=== PATIENT | female | born 1960 | race Caucasian/White ===

== ENCOUNTER 2018-07-13 01:15 | Emergency (ER) | payer BC ==
[2018-07-13 01:32] VITALS: TEMP 97.7
[2018-07-13] MEDS ORDERED: ALUM & MAG HYDROX-SIMETHICONE 30 ML, LIDOCAINE VISCOUS 2% 15 ML PO ONE ×2 (02:00)
[2018-07-13] MEDS ORDERED: LIDOCAINE HCL 2% (MOUTH-THROAT) 15 ML UD ONE (02:01)
[2018-07-13] MEDS ORDERED: PANTOPRAZOLE SOD SUSP 40 MG PCKT PO ONE (02:01)
[2018-07-13] MEDS ORDERED: ALUM & MAG HYDROX-SIMETHICONE 30 ML UD ONE (02:02)
--- NOTE | 2018-07-13 02:06 | ED.PDOC ---
History of Present Illness - General Chief Complaint: Abdominal Pain Stated Complaint: abdomen burning/pain going into chest Time Seen by Provider: 07/13/18 02:00 Information Source: patient Exam Limitations: no limitations - History of Present Illness Initial Comments: PT PRESENTS TO THE ED WITH COMPLAINT OF BURNING EPIGASTRIC ABDOMINAL PAIN RADIATING TO THE CHEST AND THROAT. PT STATES THAT SHE HAS BEEN HAVING SIMILAR INTERMITTENT SYMPTOMS. PT REPORTS TAKING MYLANTA AND TUMS AT HOME WITHOUT RELIEF INITIALLY BUT NOW STATES THAT SYMPTOMS HAVE IMPROVED SIGNIFICANTLY SINCE SHE ARRIVED TO THE ED. PT WAS SEEN IN [place] A FEW WEEKS PRIOR AND WAS TOLD SHE NEEDED TO SEE A GI SPECIALIST AND HAVE AN ENDOSCOPY. PT HAD A NEGATIVE CARDIAC EVAL AND NEGATIVE CHEST CT AT THAT TIME. PT REPORTS SIMILAR SYMPTOMS 5 YEARS AGO AT WHICH TIME SHE WAS SEEN BY GI AND CARDIOLOGY AND HAD NEGATIVE WORKUPS. Abdominal Pain Onset Location: epigastric Pain Radiation: chest Quality: moderate, burning Timing/Duration: intermittent, gone now Improving Factors: medication Worsening Factors: eating Associated Symptoms: back pain, chest pain, heartburn Review of Systems - Review of Systems Constitutional: Denies: chills, fever EENTM: Denies: nose congestion, throat pain Respiratory: States: cough. Denies: short of breath Cardiology: States: chest pain. Denies: palpitations, syncope Gastrointestinal/Abdominal: States: see HPI, abdominal pain. Denies: nausea, vomiting Genitourinary: Denies: dysuria, frequency Musculoskeletal: Denies: joint pain, joint swelling Skin: Denies: dryness, lesions Neurological: Denies: headache, numbness Endocrine: States: no symptoms reported Hematologic/Lymphatic: States: no symptoms reported Past Medical History (General) - Patient Medical History Hx Seizures: No Hx Stroke: No Hx Dementia: No Hx Asthma: No Hx of COPD: No Hx Cardiac Disorders: No Hx Congestive Heart Failure: No Hx Pacemaker: No Hx Hypertension: No Hx Thyroid Disease: No Hx Diabetes: No Hx Gastroesophageal Reflux: Yes Hx Renal Disease: No Hx Cancer: No Hx of HIV: No Hx Hepatitis C: No Hx MRSA: No Surgical History: Hysterectomy - Vaccination History Hx Tetanus, Diphtheria Vaccination: No Hx Influenza Vaccination: No Hx Pneumococcal Vaccination: No - Social History Hx Tobacco Use: Yes Cigarettes Packs Per Day: 1 Hx Alcohol Use: No Hx Substance Use: No Hx Substance Use Treatment: No Hx Depression: No - Female History Patient : No Family Medical History - Family History Mother Living Status: Age at (years of age): 70 Hx Cardiac Disease: Yes Hx Family Cancer: Yes Hx Family;Other: AAA Physical Exam - Physical Exam General Appearance: Alert, No apparent distress, Well Developed, Well Groomed, Well Hydrated, Well Nourished Eyes, Ears, Nose, Throat Exam: normal ENT inspection Neck: supple, normal inspection Respiratory: lungs clear, normal breath sounds, no respiratory distress Cardiovascular/Chest: regular rate, rhythm, no murmur Gastrointestinal/Abdominal: non tender, soft Neurologic: alert, normal mood/affect, oriented x 3 Skin Exam: normal color, warm/dry Progress - Progress Progress: 07/13/18 03:01 PT REPORTS CONTINUED IMPROVEMENT AFTER PROTONIX AND GI SLIDER GIVEN IN THE ED. LABS AND DIAGNOSTIC STUDIES DISCUSSED WITH PATIENT. - Results/Orders Results/Orders: Laboratory Tests 07/13/18 07/13/18 07/13/18 01:35 01:35 01:35 WBC 7.5 RBC 5.00 Hgb 14.5 Hct 43.3 MCV 86.6 MCH 29.1 MCHC 33.5 RDW 14.2 Plt Count 204 MPV 8.2 Absolute Neuts (auto) 4.00 Absolute Lymphs (auto) 2.80 Absolute Monos (auto) 0.60 Absolute Eos (auto) 0.10 Absolute Basos (auto) 0.10 Neutrophils % 52.9 Lymphocytes % 37.2 Monocytes % 7.5 Eosinophils % 1.6 Basophils % 0.8 PT 9.9 INR 0.99 PTT (SP) 25.2 D-Dimer, Quantitative 0.72 H* Sodium 140 Potassium 4.4 Chloride 105 Carbon Dioxide 26 Anion Gap 13.4 BUN 18 Creatinine 0.97 BUN/Creatinine Ratio 18.6 Random Glucose 108 H Serum Osmolality 281.8 Calcium 9.0 Magnesium 2.4 Total Bilirubin 0.5 Direct Bilirubin < 0.1 Indirect Bilirubin 0.4 AST 17 ALT 26 Alkaline Phosphatase 68 Creatine Kinase 75 B-Natriuretic Peptide 8.8 Serum Total Protein 7.5 Albumin 4.0 Amylase 52 Lipase 31 Urine Color Urine Appearance Urine pH Ur Specific [place] Urine Protein Urine Glucose (UA) Urine Ketones Urine Blood Urine Nitrite Urine Bilirubin Urine Urobilinogen Ur Leukocyte Esterase Urine RBC Urine WBC Ur Epithelial Cells Urine Bacteria 07/13/18 01:47 WBC RBC Hgb Hct MCV MCH MCHC RDW Plt Count MPV Absolute Neuts (auto) Absolute Lymphs (auto) Absolute Monos (auto) Absolute Eos (auto) Absolute Basos (auto) Neutrophils % Lymphocytes % Monocytes % Eosinophils % Basophils % PT INR PTT (SP) D-Dimer, Quantitative Sodium Potassium Chloride Carbon Dioxide Anion Gap BUN Creatinine BUN/Creatinine Ratio Random Glucose Serum Osmolality Calcium Magnesium Total Bilirubin Direct Bilirubin Indirect Bilirubin AST ALT Alkaline Phosphatase Creatine Kinase B-Natriuretic Peptide Serum Total Protein Albumin Amylase Lipase Urine Color Yellow Urine Appearance Clear Urine pH 7.0 Ur Specific Foster 1.015 Urine Protein Negative Urine Glucose (UA) Negative Urine Ketones Negative Urine Blood Trace-lysed H Urine Nitrite Negative Urine Bilirubin Negative Urine Urobilinogen 0.2 Ur Leukocyte Esterase Negative Urine RBC 0 Urine WBC 0 Ur Epithelial Cells 1-3 Urine Bacteria Rare - EKG/XRAY/CT EKG: Sinus - @65BPM, NL INTERVALS, NL AXIS, GOOD R WAVE PROGRESSION, no ST T wave changes, Unchanged from - 06/18/14 Departure - Departure Clinical Impression: Epigastric abdominal pain, Chest pain Time of Disposition: 03:03 Disposition: Discharge to Home or Self Care Condition: Good Departure Forms: ED Discharge - Pt. Copy, Patient Portal Self Enrollment Instructions: DI for Abdominal Pain-Adult Diet: bland diet Referrals: Chuck Armenta MD [Referring] - 1 Week SULY MERCEDES [Primary Care Provider] - 1-5 Days Prescriptions: Pantoprazole Tablet [Protonix] 40 mg PO ACBK 14 Days #14 tab Sucralfate Suspension [Carafate Suspension] 1 gm PO ACHS 14 Days #560 ml Home Medications: Ambulatory Orders Pantoprazole Tablet [Protonix] 40 mg PO ACBK 14 Days #14 tab 07/13/18 Sucralfate Suspension [Carafate Suspension] 1 gm PO ACHS 14 Days #560 ml 07/13/18
[2018-07-13 03:14] VITALS: BP 119/74; O2SAT 97
== END 2018-07-13 03:16 | disposition home or self-care (01) ==
LOC: ER 01:15
DX: R10.13 Epigastric pain (principal); R07.9 Chest pain, unspecified; K21.9 Gastro-esophageal reflux disease without esophagitis; Z87.891 Personal history of nicotine dependence

== ENCOUNTER 2018-07-31 14:45 | Emergency (ER) | payer BC ==
--- NOTE | 2018-07-31 15:09 | ED.PDOC ---
History of Present Illness - General Chief Complaint: GI Problem Stated Complaint: upper abd discomfort Time Seen by Provider: 07/31/18 15:09 Information Source: patient Exam Limitations: no limitations - History of Present Illness Initial Comments: Laurie Thacker 58 y/o female stated that she had on and off stabbing/burning epigastric pain for the last one month radiating to her chest and back of throat and mid back comes spontaneously and goes away by itself had Ct-scan abd. done in [place] in the past but no abnormalities were noted also had several ER visit for same problem.Stated no relationship to food intake,no N/V;Bm-ok;no dysuria no cough.Had egd/colonoscopy in past and also seen GI specialist also echo and stress test done in the past.Has pending appointment with GI specialist. Stated felt better at time of exam Abdominal Pain Onset Location: RUQ Pain Radiation: chest, back Quality: moderate, burning, stabbing Timing/Duration: other - 30 days Worsening Factors: nothing Associated Symptoms: denies symptoms Review of Systems - Review of Systems Constitutional: States: no symptoms reported EENTM: States: no symptoms reported Respiratory: States: no symptoms reported Cardiology: States: no symptoms reported Gastrointestinal/Abdominal: States: see HPI Genitourinary: States: no symptoms reported Musculoskeletal: States: no symptoms reported Skin: States: no symptoms reported Neurological: States: no symptoms reported Endocrine: States: no symptoms reported All other Systems: Reviewed and Negative, No Change from Baseline Past Medical History (General) - Patient Medical History Hx Seizures: No Hx Stroke: No Hx Dementia: No Hx Asthma: No Hx of COPD: No Hx Cardiac Disorders: No Hx Congestive Heart Failure: No Hx Pacemaker: No Hx Hypertension: No Hx Thyroid Disease: No Hx Diabetes: No Hx Gastroesophageal Reflux: Yes Hx Renal Disease: No Hx Cancer: Yes - cervical Hx of HIV: No Hx Hepatitis C: No Hx MRSA: No Surgical History: other - hysterectomy - Vaccination History Hx Tetanus, Diphtheria Vaccination: No Hx Influenza Vaccination: No Hx Pneumococcal Vaccination: No Immunizations Up to Date: Yes - Social History Hx Tobacco Use: Yes Cigarettes Packs Per Day: 1 Hx Alcohol Use: No Hx Substance Use: No Hx Substance Use Treatment: No Hx Depression: No - Female History Patient is a Female of Child Bearing Age (10 -59 yrs old): Yes - hysterectomy Patient : No Family Medical History - Family History Mother Living Status: Age at (years of age): 70 Hx Family Stroke: Yes - mom Hx Cardiac Disease: Yes Hx Family Cancer: Yes - lungs-mom Hx Family;Other: AAA;[place]-sister mom Physical Exam - Physical Exam General Appearance: Alert, Comfortable, No apparent distress Eyes, Ears, Nose, Throat Exam: PERRL/EOMI, normal ENT inspection, pharynx normal Neck: non-tender, full range of motion, supple, normal inspection Respiratory: chest non-tender, lungs clear, normal breath sounds, no respiratory distress Cardiovascular/Chest: normal peripheral pulses, regular rate, rhythm, no murmur Peripheral Pulses: No deficit Gastrointestinal/Abdominal: normal bowel sounds, soft, tenderness - RUQ negative gomez's sign Back Exam: no CVA tenderness, no vertebral tenderness Extremity: no pedal edema, no calf tenderness Neurologic: alert, oriented x 3 Skin Exam: normal color, warm/dry Progress - Progress Progress: 07/31/18 16:13 Vital Signs - 8 hr 07/31/18 07/31/18 15:00 16:00 Temperature 98.0 F 97.3 F L Pulse Rate [ 70 69 Left] Respiratory 20 18 Rate Blood Pressure 124/67 132/68 [Left Arm] O2 Sat by Pulse 96 96 Oximetry - Results/Orders Results/Orders: 07/31/18 15:59 EKG Assessment ONCE 07/31/18 16:00 EKG STAT Laboratory Results - last 24 hr 07/31/18 07/31/18 11:11 15:26 WBC 6.8 RBC 5.16 Hgb 14.9 Hct 44.0 MCV 85.3 MCH 28.8 MCHC 33.8 RDW 14.0 Plt Count 217 MPV 8.2 Absolute Neuts (auto) 3.40 Absolute Lymphs (auto) 2.70 Absolute Monos (auto) 0.50 Absolute Eos (auto) 0.10 Absolute Basos (auto) 0.10 Neutrophils % 49.9 Lymphocytes % 39.9 Monocytes % 7.8 Eosinophils % 1.6 Basophils % 0.8 PT 10.0 INR 1.00 PTT (SP) 25.5 Sodium 136 Potassium 4.0 Chloride 100 L Carbon Dioxide 26 Anion Gap 14.0 BUN 13 Creatinine 1.03 BUN/Creatinine Ratio 12.6 Random Glucose 88 Serum Osmolality 271.5 L Calcium 8.9 Magnesium 2.2 Total Bilirubin 0.5 Direct Bilirubin < 0.1 Indirect Bilirubin 0.4 AST 22 ALT 33 Alkaline Phosphatase 71 Creatine Kinase 73 CK-MB (CK-2) 0.9 CK-MB (CK-2) % Not Reportable Troponin I < 0.02 Serum Total Protein 7.6 Albumin 4.0 Lipase 26 Urine Color Yellow Urine Appearance Clear Urine pH 5.5 Ur Specific [place] <= 1.005 Urine Protein Negative Urine Glucose (UA) Negative Urine Ketones Negative Urine Blood Negative Urine Nitrite Negative Urine Bilirubin Negative Urine Urobilinogen 0.2 Ur Leukocyte Esterase Negative Urine RBC 0 Urine WBC 0 Ur Epithelial Cells 5-10 Urine Bacteria 0 Discuss all test results with patient and advised to keep appointment with GI specialist as scheduled - EKG/XRAY/CT EKG: Sinus, nonspecific ST T wave Chg, Unchanged from - 13 july 2018;27 Apr 2014 Comments: HR-62 Departure - Departure Clinical Impression: Abdominal pain Qualifiers: Abdominal location: right upper quadrant Qualified Code(s): R10.11 - Right upper quadrant pain Time of Disposition: 16:58 Disposition: Discharge to Home or Self Care Condition: Good Departure Forms: ED Discharge - Pt. Copy, Patient Portal Self Enrollment Diet: other - AVOID GREASY SPICY FOODS Referrals: SULY MERCEDES [Primary Care Provider] - 1-2 Weeks Prescriptions: Chlordiazepoxide HCl-Clidinium [Librax] 1 ea PO BID #20 cap Home Medications: Ambulatory Orders Pantoprazole Tablet [Protonix] 40 mg PO ACBK 14 Days #14 tab 07/13/18 Sucralfate Suspension [Carafate Suspension] 1 gm PO ACHS 14 Days #560 ml Chlordiazepoxide HCl-Clidinium [Librax] 1 ea PO BID #20 cap 07/31/18 Additional Instructions: Return to ER as needed;Call primary 02 Aug 2018 for recheck;Continue with all home medications
[2018-07-31] MEDS ORDERED: MORPHINE SULFATE INJ 10 MG/ML VIAL IV ONE (15:10)
[2018-07-31] MEDS ORDERED: PROCHLORPERAZINE INJ 10 MG/2 ML VIAL IV ONE (15:10)
[2018-07-31] MEDS ORDERED: ONDANSETRON INJ 4 MG/2 ML VIAL ONE (15:26)
[2018-07-31] MEDS ORDERED: ONDANSETRON INJ 4 MG/2 ML VIAL IV ONE (15:27)
[2018-07-31 16:09] VITALS: TEMP 97.3
[2018-07-31 17:02] VITALS: BP 129/77; O2SAT 97
== END 2018-07-31 17:07 | disposition home or self-care (01) ==
LOC: ER 14:45
DX: R10.11 Right upper quadrant pain (principal); K21.9 Gastro-esophageal reflux disease without esophagitis; Z85.41 Personal history of malignant neoplasm of cervix uteri; Z87.891 Personal history of nicotine dependence
CPT/HCPCS: 36415; 80048; 80076; 81001; 82550; 82553; 83690; 84484; 85025; 85610; 85730; 93005; J2405

== ENCOUNTER 2019-07-21 07:15 | Day surgery (SDC) | payer BC ==
--- NOTE | 2019-07-19 11:02 | RAD ---
EXAM DESCRIPTION: Chest,2 Views CLINICAL HISTORY: 59 years Female, pre op COMPARISON: Radiographs the chest dated 06/18/2014. TECHNIQUE: PA and lateral radiographs of the chest were obtained. FINDINGS: Trachea is midline.The cardiomediastinal silhouette is normal in size. The pulmonary vasculature is within normal limits.The lungs are clear with no acute consolidation.No evidence of pleural effusions.No evidence of pneumothorax. IMPRESSION: No acute cardiopulmonary process. Electronically signed by: Emmy Vu MD 07/19/2019 11:00 AM CDT
[~2019-07-21 07:15] MED LIST: BUPIVACAINE 0.25% W/EPI 50 ML VIAL INJ ONE; DEXAMETHASONE INJ 10 MG/ML VIAL ONE; FAMOTIDINE 10 MG/ML ML IV ONE; LACTATED RINGERS 1,000 ML ONE; LIDOCAINE 1% 10 ML VIAL INJ ONE; MAGNESIUM SULFATE INJ 1 GM/2 ML VIAL ONE; PROPOFOL 200 MG/20 ML VIAL IV ONE; SODIUM CHL 0.9% 100ML MINI-BAG 100 ML IVPB ONE; SODIUM CHLORIDE 0.9% 50 ML VIAL ONE; ceFAZolin SODIUM 1 GM VIAL ONE; diphenhydrAMINE HCL 50 MG/ML VIAL ONE
[2019-07-21] MEDS ORDERED: ROCURONIUM BROMIDE 10 MG/ML VIAL ONE (07:48)
[2019-07-21] MEDS ORDERED: KETAMINE HCL 100 MG/ML VIAL ONE (07:48)
[2019-07-21] MEDS ORDERED: HYDROmorphone HCL INJ 2 MG/ML VIAL ONE ×2 (07:48→13:43)
[2019-07-21] MEDS ORDERED: MIDAZOLAM INJ 2 MG/2 ML VIAL ONE (07:48)
[2019-07-21] MEDS ORDERED: BUPIVACAINE 0.25% W/EPI 50 ML VIAL INJ ONE (08:16)
[2019-07-21] MEDS ORDERED: SUGAMMADEX SODIUM 200 MG/2 ML VIAL IV ONE (09:02)
[2019-07-21] MEDS ORDERED: LEVALBUTEROL NEBS 1.25 MG/3 ML VIAL NEB ONE (09:57)
[2019-07-21] MEDS: HYDROmorphone HCL INJ 2 MG/ML VIAL ONE ×3 (10:12→10:32)
--- NOTE | 2019-07-21 10:17 | OP ---
DATE OF PROCEDURE: 07/21/19 PREOPERATIVE DIAGNOSIS: 1. Incarcerated, recurrent incisional hernia. POSTOPERATIVE DIAGNOSIS: 1. Incarcerated, recurrent incisional hernia. PROCEDURE: 1. Repair of incarcerated, recurrent incisional hernia. SURGEON: aDrrel Vargas MD. INTERPRETER TRANSLATOR: Bib Jaime MD ANESTHESIA: General endotracheal anesthesia and local infiltration of 0.25% Marcaine with epinephrine. INDICATION: The patient is a 59-year-old female who presented to my office. She had undergone a laparoscopic cholecystectomy and developed a hernia immediately after that. She was operated on and repaired with mesh. She again developed a painful mass above her umbilicus. She presented to my office with this mildly tender mass with no signs of obstruction, so a CT scan was obtained which revealed a 5 by 5 cm defect. The mesh could not be identified and the transverse colon was within the defect. She was brought to the Surgical Suite today for urgent repair after the risks, benefits and alternatives to the procedure were discussed and accepted. FINDINGS: After the patient underwent general endotracheal anesthesia and was prepped and draped, examination revealed that the mesh was palpable in the lower aspect of the previous vertical incision, but the hernia had reduced after anesthesia. The mesh was stuck at one end, connected to the inferior fascia. The remaining fascia had omentum stuck circumferentially with no bowel identified. PROCEDURE: After adequate general endotracheal anesthesia was obtained and she received IV Ancef, the patient was prepped and draped in the usual sterile manner. A surgical time-out was taken. The previous vertical incision was infiltrated with local anesthesia and extended superiorly for approximately 1.5 cm. It was opened sharply with a knife and dissection was carried down through the skin and subcutaneous tissue using electrocautery and blunt dissection. The herniation was identified and no formed hernia sac was identified, so the omentum was dissected free from the surrounding subcutaneous fat. When this was done, we began to dissect the omentum free from the fascia. Eventually the mesh was identified in the inferior aspect of the defect and this was dissected free along with using electrocautery and multiple what appeared to be Prolene sutures were removed. When this was done and the fascia had been cleaned circumferentially, an [address] implant was introduced under the defect and it was oriented horizontally. When this was done, the fascia was reapproximated over this implant using interrupted [id number] sutures of #1 PDS. While each suture was placed, we were careful to identify that the implant remained flat against the fascia. Finally, the last 3 simple sutures were placed in the center. The wings of the mesh were cut off at the level of the fascia and those last 3 sutures did go through the mesh. When this was done, the wound was irrigated copiously with saline. The subcutaneous tissue was loosely reapproximated with interrupted 3-0 Vicryl sutures and the skin edges were approximate with a skin stapler. Sterile pressure dressing was applied. An abdominal binder was applied. The patient was awakened and taken to the Recovery Room in good and stable condition. Estimated blood loss was approximately 50 to 100 mL. All sponge, needle and instrument counts were correct. #[id number] [facility]
[2019-07-21] MEDS ORDERED: ACETAMINOPHEN W/COD #3 TAB 1 EA TAB ONE (12:03)
[2019-07-21] MEDS ORDERED: KETOROLAC TROMETHAMINE INJ 30 MG/ML VIAL ONE (13:43)
[2019-07-21 15:27] VITALS: BP 136/63; TEMP 98.6; O2SAT 93
[2019-07-25] MEDS ORDERED: SUGAMMADEX SODIUM 200 MG/2 ML VIAL IV ONE (09:34)
== END 2019-07-21 14:30 | disposition home or self-care (01) ==
LOC: AMB 07:15
PROVIDERS: ATTEND Surgery
DX: K43.0 Incisional hernia with obstruction, without gangrene (principal); J44.9 Chronic obstructive pulmonary disease, unspecified; K21.9 Gastro-esophageal reflux disease without esophagitis; F17.210 Nicotine dependence, cigarettes, uncomplicated; Z85.41 Personal history of malignant neoplasm of cervix uteri; Z90.710 Acquired absence of both cervix and uterus; Z79.899 Other long term (current) drug therapy
CPT/HCPCS: 00790; 36415; 49566; 49568; 71046; 80048; 81001; 85025; 93005; 94640; A4216; J0690; J1100; J1170; J1200; J1885; J2250; J3475; J3490; J7050; J7120; J7614

== ENCOUNTER → 2019-08-30 | Outpatient (CLI) | payer BC ==
--- NOTE | 2019-08-30 13:14 | RAD ---
EXAM DESCRIPTION: Abdomen Flat Upright: CR/DR/XR. CLINICAL HISTORY: RT U QUAD PAIN COMPARISON: None TECHNIQUE: 2 views FINDINGS: Focal dilated segment of small bowel in the left lower quadrant. No air-fluid levels. Fecal material proximal and distal colon. No free air under the diaphragms. No pulmonary infiltrate in the bases or pleural effusion. IMPRESSION: Mild constipation proximal and distal colon. Small bowel stasis but no obstruction. No free air. Electronically signed by: James Gomez MD 08/30/2019 1:13 PM CDT
== END ==
LOC: LAB.O 12:20
PROVIDERS: ATTEND Surgery
DX: K59.00 Constipation, unspecified (principal); K59.8 Other specified functional intestinal disorders

== ENCOUNTER 2019-10-31 02:29 | Emergency (ER) | payer SELFPAY ==
--- NOTE | 2019-10-31 03:31 | RAD ---
EXAM: XR Chest, 1 View CLINICAL HISTORY: The patient is 59 years old and is Female; sob, near syncope TECHNIQUE: Frontal view of the chest. COMPARISON: Chest radiograph July 19, 2019 FINDINGS: LUNGS: Unremarkable. No consolidation. PLEURAL SPACE: Unremarkable. No pneumothorax. HEART: Unremarkable. No cardiomegaly. MEDIASTINUM: Unremarkable. BONES/JOINTS: Unremarkable. IMPRESSION: No acute cardiopulmonary process. Electronically signed by: Renata Forrest MD 10/31/2019 3:29 AM CDT
[2019-10-31] MEDS: predniSONE 20 MG TAB PO ONE ×2 (03:56→03:59)
[2019-10-31] MEDS ORDERED: AMOXICILLIN & POT CLAVULANATE 875 MG TAB PO ONE (04:58)
--- NOTE | 2019-10-31 05:01 | ED.PDOC ---
History of Present Illness - General Chief Complaint: Respiratory Problem Stated Complaint: shortness of breath Time Seen by Provider: 10/31/19 02:41 Source: patient Exam Limitations: no limitations - History of Present Illness Initial Comments: The patient is a 59-year-old female presented emergency room after having woken up feeling short of breath. The patient has recently had increased runny nose. She does have known COPD and does smoke. She did take 1 puff of her albuterol inhaler. No fever. No sore throat. No chest pain. No syncope. She did feel dizzy. No rash. The patient and her are both minimally compliant. They are borderline belligerent. Respiratory panel swab was not allowed to be done adequately. The patient pulled back and would not allow appropriate swabbing in both nostrils. Timing/Duration: momentarily Severity: mild Improving Factors: nothing Worsening Factors: nothing Associated Symptoms: cough, malaise, shortness of breath, weakness Allergies/Adverse Reactions: Allergies Codeine Allergy (Verified 10/31/19 02:43) Sulfa Antibiotics Allergy (Verified 07/13/18 01:34) Home Medications: Ambulatory Orders Albuterol Sulfate [Proair Hfa] 1 - 2 puff INH PRN PRN 07/19/19 Amoxicillin & Pot Clavulanate [Augmentin Tab] 875 mg PO BID #10 tab 10/31/19 predniSONE [Prednisone] 20 mg PO DAILY #5 tab 10/31/19 Review of Systems - Review of Systems Constitutional: States: malaise EENTM: States: no symptoms reported Respiratory: States: short of breath Cardiology: States: no symptoms reported Gastrointestinal/Abdominal: States: no symptoms reported Genitourinary: States: no symptoms reported Musculoskeletal: States: no symptoms reported Skin: States: no symptoms reported Neurological: States: no symptoms reported Endocrine: States: no symptoms reported All other Systems: No Change from Baseline Past Medical History (General) - Patient Medical History Hx Seizures: No Hx Stroke: No Hx Dementia: No Hx Asthma: Yes Hx of COPD: No Hx Cardiac Disorders: No Hx Congestive Heart Failure: No Hx Pacemaker: No Hx Hypertension: No Hx Thyroid Disease: No Hx Diabetes: No Hx Gastroesophageal Reflux: Yes Hx Renal Disease: No Hx Cancer: No Hx of HIV: No Hx Hepatitis C: No Hx MRSA: No Surgical History: cholecystectomy - Vaccination History Hx Tetanus, Diphtheria Vaccination: No Hx Influenza Vaccination: No Hx Pneumococcal Vaccination: No Immunizations Up to Date: No Immunizations Comment: pt unsure - Social History Hx Tobacco Use: Yes Hx Chewing Tobacco Use: No Hx Alcohol Use: No Hx Substance Use: No Hx Substance Use Treatment: No Hx Depression: No Feels Threatened In Home Enviroment: No Feels Threatened In a Relationship: No Hx Physical Abuse: No Hx Emotional Abuse: No Hx Suspected Abuse: No - Activities of Daily Living Hospice Agency (if applicable):: None - Female History Patient is a Female of Child Bearing Age (10 -59 yrs old): No - Had a hysterectomy Patient : No Family Medical History - Family History Mother Living Status: Age at (years of age): 70 Hx Family Stroke: Yes - mom Hx Cardiac Disease: Yes Hx Family Cancer: Yes - lungs-mom Hx Family;Other: AAA;[place]-sister mom Physical Exam - Physical Exam General Appearance: Alert, Comfortable, No apparent distress Eye Exam: bilateral normal Ears, Nose, Throat: hearing grossly normal, normal pharynx Neck: full range of motion, supple Respiratory: no respiratory distress, no accessory muscle use, wheezing Cardiovascular/Chest: normal peripheral pulses, regular rate, rhythm, no edema Peripheral Pulses: radial,right: 2+, radial,left: 2+ Gastrointestinal/Abdominal: non tender, soft Rectal Exam: deferred Back Exam: no CVA tenderness, no vertebral tenderness Extremity: normal range of motion, non-tender, normal inspection, no pedal edema, normal capillary refill 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 EKG shows normal sinus rhythm. No evidence of ST segment elevation or depression consistent with acute ischemia. Chest x-ray shows no focal infiltrate or cardiomegaly. No fluid overload or significant infiltrate. Laboratory Results - last 24 hr 10/31/19 10/31/19 10/31/19 03:00 03:00 03:00 WBC 7.3 RBC 4.90 Hgb 14.6 Hct 42.2 MCV 85.9 MCH 29.7 MCHC 34.5 RDW 13.7 Plt Count 184 MPV 7.9 Absolute Neuts (auto) 3.70 Absolute Lymphs (auto) 3.00 Absolute Monos (auto) 0.50 Absolute Eos (auto) 0.10 Absolute Basos (auto) 0.10 Neutrophils % 50.4 Lymphocytes % 40.8 Monocytes % 6.4 Eosinophils % 1.3 Basophils % 1.1 PT 9.9 INR 1.00 PTT (SP) 24.4 Sodium 140 Potassium 3.9 Chloride 107 Carbon Dioxide 24 Anion Gap 12.9 BUN 15 Creatinine 1.01 BUN/Creatinine Ratio 14.9 Random Glucose 124 H Serum Osmolality 281.6 Calcium 9.3 Magnesium 1.9 Total Bilirubin 0.4 AST 19 ALT 29 Alkaline Phosphatase 69 Creatine Kinase 67 CK-MB (CK-2) 1.0 CK-MB (CK-2) % Not Reportable Troponin I < 0.02 B-Natriuretic Peptide < 15.0 Serum Total Protein 7.2 Albumin 3.8 Globulin 3.4 Albumin/Globulin Ratio 1.1 TSH 3.41 Urine Color Urine Appearance Urine pH Ur Specific [place] Urine Protein Urine Glucose (UA) Urine Ketones Urine Blood Urine Nitrite Urine Bilirubin Urine Urobilinogen Ur Leukocyte Esterase Urine RBC Urine WBC Ur Epithelial Cells Urine Bacteria 10/31/19 03:00 WBC RBC Hgb Hct MCV MCH MCHC RDW Plt Count MPV Absolute Neuts (auto) Absolute Lymphs (auto) Absolute Monos (auto) Absolute Eos (auto) Absolute Basos (auto) Neutrophils % Lymphocytes % Monocytes % Eosinophils % Basophils % PT INR PTT (SP) Sodium Potassium Chloride Carbon Dioxide Anion Gap BUN Creatinine BUN/Creatinine Ratio Random Glucose Serum Osmolality Calcium Magnesium Total Bilirubin AST ALT Alkaline Phosphatase Creatine Kinase CK-MB (CK-2) CK-MB (CK-2) % Troponin I B-Natriuretic Peptide Serum Total Protein Albumin Globulin Albumin/Globulin Ratio TSH Urine Color Yellow Urine Appearance Clear Urine pH 5.5 Ur Specific [place] 1.020 Urine Protein Negative Urine Glucose (UA) Negative Urine Ketones Negative Urine Blood Trace-intact H Urine Nitrite Negative Urine Bilirubin Negative Urine Urobilinogen 0.2 Ur Leukocyte Esterase Negative Urine RBC 0-1 Urine WBC 0 Ur Epithelial Cells 0-1 Urine Bacteria 0 Progress - Progress Progress: 10/31/19 05:02 The patient is a 59-year-old female presenting with a mild COPD exacerbation. For this the patient will be written for 5 days of oral prednisone along with 5 days of oral Augmentin. The patient needs to use her nebulizer treatment when she is getting short of breath. She needs to stop smoking as well. ER warnings are given for any significant worsening. ken ross [phone] 10/31/19 05:03 Departure - Departure Clinical Impression: Acute exacerbation of chronic obstructive pulmonary disease (COPD) Disposition: Discharge to Home or Self Care Condition: Fair Departure Forms: ED Discharge - Pt. Copy, Patient Portal Self Enrollment Diet: regular diet Activity: increase activity as tolerated Referrals: SULY MERCEDES [Primary Care Provider] - 1-2 Days Prescriptions: Amoxicillin & Pot Clavulanate [Augmentin Tab] 875 mg PO BID #10 tab predniSONE [Prednisone] 20 mg PO DAILY #5 tab Home Medications: Ambulatory Orders Albuterol Sulfate [Proair Hfa] 1 - 2 puff INH PRN PRN 07/19/19 Amoxicillin & Pot Clavulanate [Augmentin Tab] 875 mg PO BID #10 tab 10/31/19 predniSONE [Prednisone] 20 mg PO DAILY #5 tab 10/31/19 Additional Instructions: The patient is a 59-year-old female presenting with a mild COPD exacerbation. For this the patient will be written for 5 days of oral prednisone along with 5 days of oral Augmentin. The patient needs to use her nebulizer treatment when she is getting short of breath. She needs to stop smoking as well. ER warnings are given for any significant worsening.
[2019-10-31 05:08] VITALS: BP 149/83; TEMP 97.9; O2SAT 96
== END 2019-10-31 05:16 | disposition home or self-care (01) ==
LOC: ER 02:29
DX: J44.1 Chronic obstructive pulmonary disease with (acute) exacerbation (principal); F17.200 Nicotine dependence, unspecified, uncomplicated; K21.9 Gastro-esophageal reflux disease without esophagitis; Z20.828 Contact with and (suspected) exposure to other viral communicable diseases; Z79.899 Other long term (current) drug therapy; Z88.5 Allergy status to narcotic agent; Z88.2 Allergy status to sulfonamides
CPT/HCPCS: 71045; 80053; 81001; 82550; 82553; 83735; 83880; 84443; 84484; 85025; 85610; 85730; 87635; 93005; J7512